=== PATIENT | female | born 1975 ===

== ENCOUNTER 2017-06-04 10:52 | Emergency (ER) | payer SELFPAY ==
[2017-06-04 10:59] VITALS: BP 127/79; PULSE 72; TEMP 97; O2SAT 100
[2017-06-04 11:00] VITALS: BMI 24.3
[2017-06-04 11:21] VITALS: RESP 19
--- NOTE | 2017-06-04 12:02 | ED PDOC ---
HPI: Skin/Bite Injury Time Seen by Provider: 06/04/17 12:00 Chief Complaint (Nursing): Abnormal Skin Integrity Chief Complaint (Provider): RASH History Per: Patient (41 Y/O FEMALE HERE WITH RASH ONGOING X 8 DAYS NOTED WITH SMALL LESIONS THROUGHOUT BODY AND IMPROVED WITH BENADRYL AT TIMES. STATES SHE IS UNSURE IF IT IS FROM LATEX GLOVES OR EXPOSURE TO DUST AT WORK . CURRENTLY IS NOT WORKING FOR FEW DAYS.) Past Medical History Reviewed: Historical Data, Nursing Documentation, Vital Signs Vital Signs: Last Vital Signs Temp 97 F L 06/04/17 11:18 Pulse 72 06/04/17 11:18 Resp 19 06/04/17 11:18 BP 127/79 06/04/17 11:18 Pulse Ox 100 06/04/17 11:18 - Family History Family History: States: No Known Family Hx - Home Medications Home Medications: Ambulatory Orders Medication Instructions Recorded Hydrocortisone 1% Oint [Cortizone 0.5 gm TP BID PRN #1 tube 06/04/17 1% Oint] - Allergies Allergies/Adverse Reactions: Allergies Allergy/AdvReac Type Severity Reaction Status Date / Time latex Allergy ITCHING Verified 06/04/17 11:59 Review of Systems ROS Statement: Except As Marked, All Systems Reviewed And Found Negative Skin: Positive for: Rash Physical Exam - Reviewed Nursing Documentation Reviewed: Yes Vital Signs Reviewed: Yes - Physical Exam Appears: Positive for: Well, Non-toxic, No Acute Distress Head Exam: Positive for: ATRAUMATIC, NORMAL INSPECTION, NORMOCEPHALIC Skin: Positive for: Normal Color, Warm, Rash (SMALL PAPULAR LESIONS NOTED UPPER AND LOWER EXTREMITES.) Eye Exam: Positive for: EOMI, Normal appearance, PERRL ENT: Positive for: Normal ENT Inspection Neck: Positive for: Normal, Painless ROM Cardiovascular/Chest: Positive for: Regular Rate, Rhythm Respiratory: Positive for: CNT, Normal Breath Sounds Gastrointestinal/Abdominal: Positive for: Normal Exam, Bowel Sounds, Soft Back: Positive for: Normal Inspection Extremity: Positive for: Normal ROM Neurologic/Psych: Positive for: Alert, Oriented - ECG O2 Sat by Pulse Oximetry: 100 Disposition - Clinical Impression Clinical Impression: Contact dermatitis - Patient ED Disposition Is Patient to be Admitted: No - Disposition Referrals: Tao Cruz MD [Staff Provider] - Disposition: Routine/Home Disposition Time: 12:01 Condition: FAIR Prescriptions: Hydrocortisone 1% Oint [Cortizone 1% Oint] 0.5 gm TP BID PRN #1 tube PRN Reason: Rash Instructions: Contact Dermatitis (ED) Forms: [employer] (Mongolian) Print Language: SERBIAN
== END 2017-06-04 12:22 | disposition home or self-care (01) ==
LOC: H.ER 10:52
DX: L25.9 Unspecified contact dermatitis, unspecified cause (principal)

== ENCOUNTER 2018-04-18 19:13 | Emergency (ER) | payer SELFPAY ==
[2018-04-18 19:13] VITALS: BMI 24.3
[2018-04-18 19:28] VITALS: RESP 16
--- NOTE | 2018-04-18 20:22 | ED PDOC ---
HPI: Abdomen Time Seen by Provider: 04/18/18 19:33 Chief Complaint (Nursing): Abdominal Pain Chief Complaint (Provider): Abdominal Pain History Per: Patient History/Exam Limitations: no limitations Current Symptoms Are (Timing): Still Present Additional Complaint(s): 42 y/o female with a PMHx of HTN presents to the ED complaining of pelvic pain, onset four days ago. Patient reports of an increasing lower abdominal pain with mild abdominal distention that today radiated to the lower back . Patient states she had fallen in a seated position on the bathroom floor prior to onset of pain but did not have pain at that time. Patient also reports of nausea and a slightly decreased appetite. Denies hematuria, dysuria, frequency, vaginal discharge, vaginal bleeding, vomiting, diarrhea, constipation, fever and chills PMD: [facility] Past Medical History Reviewed: Historical Data, Nursing Documentation, Vital Signs Vital Signs: Last Vital Signs Temp 98.6 F 04/19/18 00:05 Pulse 72 04/19/18 00:05 Resp 16 04/19/18 00:05 BP 133/81 04/19/18 00:05 Pulse Ox 100 04/19/18 00:05 - Medical History PMH: HTN - Surgical History Surgical History: - Family History Family History: States: Hypertension - Social History Current smoker - smoking cessation education provided: No Alcohol: None - Home Medications Home Medications: Ambulatory Orders Medication Instructions Recorded Hydrocortisone 1% Oint [Cortizone 0.5 gm TP BID PRN #1 tube 06/04/17 1% Oint] Ibuprofen [Motrin Tab] 600 mg PO Q8 PRN #60 tab 04/18/18 - Allergies Allergies/Adverse Reactions: Allergies Allergy/AdvReac Type Severity Reaction Status Date / Time No Known Allergies Allergy Verified 04/18/18 19:25 Review of Systems ROS Statement: Except As Marked, All Systems Reviewed And Found Negative (As per HPI) Constitutional: Negative for: Fever, Chills Gastrointestinal: Positive for: Nausea, Abdominal Pain (lower abdominal pain with mild abdominal distention). Negative for: Vomiting, Diarrhea, Constipation Genitourinary Female: Positive for: Pelvic Pain. Negative for: Dysuria, Frequency, Hematuria, Vaginal Discharge, Vaginal Bleeding Musculoskeletal: Positive for: Back Pain (low) Physical Exam - Reviewed Nursing Documentation Reviewed: Yes Vital Signs Reviewed: Yes - Physical Exam Appears: Positive for: Non-toxic, In Acute Distress (mild, painful) Head Exam: Positive for: ATRAUMATIC, NORMOCEPHALIC Skin: Positive for: Warm, Dry Eye Exam: Positive for: EOMI, PERRL ENT: Positive for: Pharynx Is (clear), Other (mucus membranes moist) Neck: Positive for: Painless ROM, Supple Cardiovascular/Chest: Positive for: Regular Rate, Rhythm. Negative for: Murmur Respiratory: Positive for: Normal Breath Sounds. Negative for: Respiratory Distress Gastrointestinal/Abdominal: Positive for: Soft, Tenderness (to palpation to the Suprapubic and Bilateral Lower Abdomen), Distended (lower abdominal ), Other ( Positive McBurney's Point Tenderness). Negative for: Mass, Guarding, Rebound Back: Positive for: Normal Inspection. Negative for: Decreased ROM Extremity: Positive for: Normal ROM. Negative for: Deformity Lymphatic: Negative for: Adenopathy Neurologic/Psych: Positive for: Alert. Negative for: Motor/Sensory Deficits - Laboratory Results Result Diagrams: 04/18/18 22:23 04/18/18 22:23 - ECG O2 Sat by Pulse Oximetry: 99 (RA) Pulse Ox Interpretation: Normal Medical Decision Making Medical Decision Making: Time: 2021 Impression: Lower abdominal pain Differentials include but not limited to ovarian cysts or rupture, ovarian torsion, cystitis, UTI, cholitis, appendicitis Plan: -- CMP -- ED Urine -- ED Urine Dipstick -- CBC with Differentials -- Morphine 2 mg IVP -- Sodium Chloride 1000 mls/hr IV -- Iohexol 50 ml PO -- Zofran Inj 4 mg IVP -- IV Insertion -- LS SPINE AP/LAT XR -- Transvaginal US Time: 2203 TRANSVAGINAL US RESULTS FINDINGS: Uterus/cervix: Multiple apparent fibroids are identified the largest fundal in measuring 4.5 a 3.4 x 3.9 cm. Uterus is anteverted. Normal endometrial stripe thickness. Right ovary: Unremarkable. No mass. Normal blood flow. Left ovary: The left ovary is not seen. Free fluid: No free fluid. IMPRESSION: No acute findings. Multiple apparent fibroids. Left ovary not seen Thank you for allowing us to participate in the care of your patient. Dictated and Authenticated by: Kayden Broussard MD 04/18/2018 10:04 PM Eastern Time ([place] & [place]) EXAM: US Pelvis, Transvaginal EXAM DATE/TIME: Exam ordered 04/18/2018 7:55 PM CLINICAL HISTORY: 42 years old, female; Pain; Pelvic pain TECHNIQUE: Real-time transvaginal pelvic ultrasound (complete) with image documentation. Transvaginal imaging was used for better evaluation of the endometrium and adnexa. COMPARISON: No relevant prior studies available. FINDINGS: Uterus/cervix: Multiple apparent fibroids are identified the largest fundal in measuring 4.5 a 3.4 x 3.9 cm. Uterus is anteverted. Normal endometrial stripe thickness. Right ovary: Unremarkable. No mass. Normal blood flow. Left ovary: The left ovary is not seen. Free fluid: No free fluid. IMPRESSION: No acute findings. Multiple apparent fibroids. Left ovary not seen Thank you for allowing us to participate in the care of your patient. Dictated and Authenticated by: Kayden Broussard MD 04/18/2018 10:04 PM Eastern Time ( & [place]) DW pt findings. She reports that she has had fibroids years ago but was told they were small. Advised [employer] followup. All questions/concerns answered/ addressed. Scribe Attestation: Documented by Ilana Kiran acting as a scribe for Dr. Mila Perry. Provider Scribe Attestation: All medical record entries made by the Scribe were at my direction and personally dictated by me. I have reviewed the chart and agree that the record accurately reflects my personal performance of the history, physical exam, medical decision making, and the department course for this patient. I have also personally directed, reviewed, and agree with the discharge instructions and disposition. Disposition - Clinical Impression Clinical Impression: Fibroid, uterine, Hypokalemia - Disposition [facility] 2-3 FAY) Disposition: Routine/Home Disposition Time: 23:00 Condition: IMPROVED Prescriptions: Ibuprofen [Motrin Tab] 600 mg PO Q8 PRN #60 tab PRN Reason: Pain, Moderate (4-7) Instructions: Uterine Fibroids, Hypokalemia (DC) Forms: [facility] ED School/Work Excuse Print Language: UZBEK
[2018-04-18] MEDS: Sodium Chloride 0.9% 1,000 ML IV STA (20:40)
[2018-04-18] MEDS: Iohexol 240 (50 ml) PO STA (20:49)
[2018-04-18] MEDS ORDERED: Iohexol 240 (50 ml) ONE (20:49)
[2018-04-18 22:34] LABS: BASO % 0.5 % (0.0-2.0); EOS # 0.1 K/uL (0.0-0.7); EOS % 1.2 % (0.0-4.0); HEMOGLOBIN 13.5 g/dL (12.0-16.0); LYMPH % 37.4 % (20.0-40.0); MEAN CELL VOLUME 93.2 fl (81.0-99.0); MEAN CORPUSCULAR HEMOGLOBIN 31.1 pg (27.0-31.0); MEAN CORPUSCULAR HGB CONC 33.3 g/dL (33.0-37.0); MEAN PLATELET VOLUME 8.1 fl (7.2-11.7); MONO # 0.8 K/uL (0.0-0.8); MONO % 9.6 % (0.0-10.0); NEUT # 4.1 K/uL (1.8-7.0); NEUT % 51.3 % (50.0-75.0); NRBC % 0.1 % (0.0-0.0); RBC 4.35 Mil/uL (3.80-5.20); RED CELL DISTRIBUTION WIDTH 13.2 % (11.5-14.5)
[2018-04-18 22:45] LABS: ALB/GLOB RATIO 1.2 (1.0-2.1); ALBUMIN 4.2 g/dL (3.5-5.0); ALT/SGPT 29 U/L (9-52); AST/SGOT 32 U/L (14-36); BLOOD UREA NITROGEN 15 mg/dl (7-17); CALCIUM 9.4 mg/dL (8.4-10.2); GFR AFRICAN-AMERICAN > 60; GFR NON-AFRICAN AMERICAN > 60
[2018-04-18] MEDS ORDERED: Potassium Chloride 20 mEq ER Tab PO ONE (23:41)
[2018-04-18] MEDS: Potassium Chloride 20 mEq ER Tab PO STA (23:42)
[2018-04-19 00:06] VITALS: BP 133/81; PULSE 72; TEMP 98.6
--- NOTE | 2018-04-19 08:37 | RAD ---
Date of service: 04/18/2018 PROCEDURE: Radiographs of the Lumbar Spine. HISTORY: LOW BACK PAIN S/P FALL COMPARISON: No prior. FINDINGS: BONES: Mild straightening of lumbar curvature without fracture or spondylolisthesis appreciated. DISC SPACES: II body disc interspace heights are identified. OTHER FINDINGS: None. IMPRESSION: Straightened lumbar curvature without fracture or spondylolisthesis identified.
--- NOTE | 2018-04-19 11:23 | US ---
Date of service: 04/18/2018 HISTORY: Pelvic pain. LMP 03/31/2018 with regular cycles. COMPARISON: None available. TECHNIQUE: Transvaginal only. Real -time technique with 2D, duplex and color Doppler FINDINGS: UTERUS: Measures 5.8 x 7.4 x 9.4 cm. Normal in size, heterogeneous echo characteristics. 1. Fundal fibroid submucosal 3.4 x 4.5 cm. 2. Fibroid in the body of the uterus to the left of the midline 2.9 x 3 x 3.1 cm. ENDOMETRIUM: Measures 6.4 mm in diameter. No ultrasound findings to suggest gestational sac, fluid, debris, mass or polyp or other pathologic process within the endometrium. CERVIX: No cervical abnormality identified. RIGHT OVARY: Measures 1.1 x 2.1 x 2.6 cm. No solid mass. Normal flow. LEFT OVARY: Not visible. FREE FLUID: No significant free fluid noted. OTHER FINDINGS: None. IMPRESSION: No acute findings related to/accounting for the clinical presentation. Enlarged myomatous uterus. Limitations of the current study: The left ovary is not identified. Concordant results (preliminary interpretation) provided by [facility]. Procedure Completed: 21:12. Preliminary ([facility]) Report: Dictated and Authenticated: 22:04 Final Interpretation: 11:21. April 19, 2018.
[2018-04-19 16:45] VITALS: O2SAT 99
== END 2018-04-19 00:15 | disposition home or self-care (01) ==
LOC: H.ER 19:13
DX: D25.9 Leiomyoma of uterus, unspecified (principal); E87.6 Hypokalemia; I10 Essential (primary) hypertension
CPT/HCPCS: 72100; 76830; 80053; 81025; 85025; 96361; 96374; 96375; 99285; J2270; J2405; J7030; Q9966

== ENCOUNTER 2018-12-19 15:39 | Emergency (ER) | payer SELFPAY ==
[2018-12-19 15:39] VITALS: BMI 24.3
[2018-12-19 16:44] LABS: BASO % 0.4 % (0.0-2.0); EOS % 0.3 % (0.0-4.0); HEMOGLOBIN 12.7 g/dL (12.0-16.0); LYMPH # 2.2 K/uL (1.0-4.3); LYMPH % 26.8 % (20.0-40.0); MEAN CORPUSCULAR HEMOGLOBIN 30.3 pg (27.0-31.0); MEAN CORPUSCULAR HGB CONC 32.5 g/dL (33.0-37.0); MEAN PLATELET VOLUME 7.7 fl (7.2-11.7); MONO # 0.4 K/uL (0.0-0.8); MONO % 5.2 % (0.0-10.0); NEUT # 5.5 K/uL (1.8-7.0); NEUT % 67.3 % (50.0-75.0); RBC 4.21 Mil/uL (3.80-5.20); RED CELL DISTRIBUTION WIDTH 13.6 % (11.5-14.5); WHITE BLOOD COUNT 8.2 K/uL (4.8-10.8)
[2018-12-19 16:53] LABS: ALB/GLOB RATIO 1.2 (1.0-2.1); ALBUMIN 4.4 g/dL (3.5-5.0); ALT/SGPT 31 U/L (9-52); AST/SGOT 30 U/L (14-36); BLOOD UREA NITROGEN 13 mg/dl (7-17); CALCIUM 9.6 mg/dL (8.4-10.2); GFR NON-AFRICAN AMERICAN > 60
--- NOTE | 2018-12-19 17:02 | ED PDOC ---
HPI: Chest Pain Time Seen by Provider: 12/19/18 15:58 Chief Complaint (Nursing): Palpitations Chief Complaint (Provider): Palpitations History Per: Patient History/Exam Limitations: no limitations Onset/Duration Of Symptoms: Days (X1) Current Symptoms Are (Timing): Still Present Additional Complaint(s): 43 year old female patient, with a past medical history of hypokalemia, who presents to the ED complaining of palpitations associated with shortness of breath onset last night and felt again this morning. Patient states she is currently not feeling symptoms but she also has had flu-like symptoms for the last 2 days with mild cough and generalized weakness. She has taken Tylenol Cold for symptoms. Patient denies any increase in caffeine intake, alcohol or over t he counter medication. Patient denies any fever, chills, leg swelling or chest pain. PMD: Clinic Past Medical History Reviewed: Historical Data, Nursing Documentation, Vital Signs Vital Signs: Last Vital Signs Temp 98.6 F 12/19/18 15:50 Pulse 84 12/19/18 15:50 Resp 16 12/19/18 15:50 BP Pulse Ox ASHLY Report Viewed: Yes - Medical History PMH: HTN Other PMH: hypokalemia - Surgical History Surgical History: - Family History Family History: States: Hypertension - Social History Current smoker - smoking cessation education provided: No Alcohol: None Drugs: Denies - Home Medications Home Medications: Ambulatory Orders Medication Instructions Recorded Hydrocortisone 1% Oint [Cortizone 0.5 gm TP BID PRN #1 tube 06/04/17 1% Oint] Ibuprofen [Motrin Tab] 600 mg PO Q8 PRN #60 tab 04/18/18 Nitrofurantoin Macrocrystals 1 cap PO BID #14 cap 12/19/18 [Macrobid] Phenazopyridine HCl [Pyridium] 200 mg PO BID PRN #20 tablet 12/19/18 - Allergies Allergies/Adverse Reactions: Allergies Allergy/AdvReac Type Severity Reaction Status Date / Time No Known Allergies Allergy Verified 12/19/18 15:50 Review of Systems ROS Statement: Except As Marked, All Systems Reviewed And Found Negative Constitutional: Positive for: Weakness (generalized). Negative for: Fever Cardiovascular: Positive for: Palpitations. Negative for: Chest Pain, Edema Respiratory: Positive for: Cough (Mild), Shortness of Breath Neurological: Positive for: Weakness (general ) Physical Exam - Reviewed Nursing Documentation Reviewed: Yes Vital Signs Reviewed: Yes - Physical Exam Appears: Positive for: Non-toxic, No Acute Distress Head Exam: Positive for: ATRAUMATIC, NORMAL INSPECTION, NORMOCEPHALIC Skin: Positive for: Normal Color, Warm, Dry Eye Exam: Positive for: Normal appearance, EOMI, PERRL Neck: Positive for: Normal, Painless ROM Cardiovascular/Chest: Positive for: Regular Rate, Rhythm. Negative for: Edema, Murmur Respiratory: Positive for: Normal Breath Sounds (clear to auscultation). Nega tive for: Wheezing, Respiratory Distress Gastrointestinal/Abdominal: Positive for: Soft. Negative for: Tenderness Back: Positive for: Normal Inspection. Negative for: Decreased ROM Extremity: Positive for: Normal ROM (upper and lower). Negative for: Calf Tenderness, Deformity, Swelling Neurological/Psych: Positive for: Awake, Alert, Normal Tone - Laboratory Results Result Diagrams: 12/19/18 16:30 12/19/18 16:30 Lab Results: Total Bilirubin 0.2 mg/dl (0.2-1.3) 12/19/18 16:30 AST 30 U/L (14-36) 12/19/18 16:30 ALT 31 U/L (9-52) 12/19/18 16:30 Alkaline Phosphatase 55 U/L (38-126) 12/19/18 16:30 Total Protein 8.1 G/DL (6.3-8.2) 12/19/18 16:30 Albumin 4.4 g/dL (3.5-5.0) 12/19/18 16:30 Globulin 3.7 gm/dL (2.2-3.9) 12/19/18 16:30 Albumin/Globulin Ratio 1.2 (1.0-2.1) 12/19/18 16:30 Medical Decision Making Medical Decision Making: Time: 15:58 Initial Impression: Palpitations. Differential diagnosis includes: electrolyte abnormalities, thyroid disorder, anemia, flu, influenza-like illness. Plan: * Electrocardiogram * Complete metabolic panel * Magnesium stat * Phosphorus * Thyroid stimulatin Hormone * Troponin 1 * ED urine preganancy (POC) * Urine Dipstick 17:03 CXR FINDINGS: LINES AND TUBES: None. LUNG AND PLEURA: The lungs are well inflated and clear. No pleural effusion or pneumothorax. HEART AND MEDIASTINUM: The heart is not enlarged. No aortic atherosclerotic calcifications present. The hilar and mediastinal contours are within normal limits. SKELETAL STRUCTURES: The bony structures are within normal limits for the patient's age. VISUALIZED UPPER ABDOMEN: Normal. OTHER FINDINGS: None. IMPRESSION: No active pulmonary disease. 17:35 Labs with no clinical significant of abnormalities. On reeval pt now reporting that she has urinary frequency for a week. Urinalysis pending. 1900 Labs demonstate UTI. DW pt findings and plan of care. STable for dc with followup at clinic. Scribe Attestation: Documented by Leonard Ayoub, acting as a scribe for Mila Perry MD Provider Scribe Attestation: All medical record entries made by the Scribe were at my direction and personally dictated by me. I have reviewed the chart and agree that the record accurately reflects my personal performance of the history, physical exam, medical decision making, and the department course for this patient. I have also personally directed, reviewed, and agree with the discharge instructions and disposition. Disposition - Clinical Impression Clinical Impression: Palpitations Counseled Patient/Family Regarding: Studies Performed, Diagnosis, Need For Followup - Disposition Referrals: [facility] [Outside] - 12[facility]20/18 [facility]) Disposition: Routine/Home Disposition Time: 18:40 Condition: STABLE Instructions: Palpitations (DC), Stress Print Language: GUAMANIAN
--- NOTE | 2018-12-19 17:06 | RAD ---
Date of service: 12/19/2018 HISTORY: Shortness of breath and palpitations COMPARISON: No prior. TECHNIQUE: Chest PA and lateral FINDINGS: LINES AND TUBES: None. LUNG AND PLEURA: The lungs are well inflated and clear. No pleural effusion or pneumothorax. HEART AND MEDIASTINUM: The heart is not enlarged. No aortic atherosclerotic calcifications present. The hilar and mediastinal contours are within normal limits. SKELETAL STRUCTURES: The bony structures are within normal limits for the patient's age. VISUALIZED UPPER ABDOMEN: Normal. OTHER FINDINGS: None. IMPRESSION: No active pulmonary disease.
[2018-12-19 18:52] LABS: SQUAMOUS EPITHIAL 4 /hpf (0-5); URINE BACTERIA RARE (<OCC); URINE BILIRUBIN NEGATIVE (NEGATIVE); URINE BLOOD SMALL (NEGATIVE); URINE CLARITY SLIGHTY-CLOUDY (Clear); URINE COLOR STRAW (YELLOW); URINE GLUCOSE (UA) NEG (NEGATIVE); URINE LEUKOCYTE ESTERASE LARGE Leu/uL (Negative); URINE PROTEIN NEGATIVE (NEGATIVE); URINE UROBILINOGEN 0.2-1.0 mg/dL (0.2-1.0)
[2018-12-19 19:19] VITALS: BP 127/70; PULSE 78; RESP 18; TEMP 97.9; O2SAT 100
--- NOTE | 2018-12-20 09:19 | CARD ---
APPROVED REPORT Date of service: 12/19/2018 EKG Measurement Heart [id number] <Conclusion> Normal sinus rhythm Incomplete right bundle branch block Otherwise normal ECG
--- NOTE | 2018-12-20 09:19 | CARD ---
APPROVED REPORT Date of service: 12/19/2018 EKG Measurement Heart [id number] <Conclusion> Sinus rhythm with 1st degree AV block Otherwise normal ECG
== END 2018-12-19 19:17 | disposition home or self-care (01) ==
LOC: H.ER 15:39
DX: R00.2 Palpitations (principal)